=== PATIENT | female | born 1980 | race Caucasian/White ===

== ENCOUNTER 2018-01-03 06:28 | Emergency (ER) | payer OTHER ==
--- NOTE | 2018-01-03 06:52 | CPEKG ---
Heart Rate: 73 RR Interval: 822 P-R Interval: 144 QRSD Interval: 76 QT Interval: 416 QTC Interval: 459 P Bethel: 64 QRS Bethel: 57 T Wave Bethel: 55 EKG Severity - NORMAL ECG - EKG Impression: SINUS RHYTHM Electronically Signed By: Davy Diop 03-Jan-2018 09:16:53
[2018-01-03] MEDS ORDERED: ALBUTEROL INH PREPACK MDI TAKEHOME ONE (07:08)
--- NOTE | 2018-01-03 07:12 | EDPHY ---
H & P Stated Complaint: pain in ribs/chest, pain with deep breaths x2 weeks Time Seen by Provider: 01/03/18 06:52 HPI/ROS: Chief Complaint: Chest tightness, cough HPI: 37-year-old woman presenting with 1 month of intermittent cough, chest tightness with pain in her right arm. Occasionally gets some stabbing pains in the center of her chest. She is currently living in an old trailer and the roof is leaking. She is concerned that she may have pneumonia from black mold. Denies any fevers or chills. No nausea or vomiting. No weight loss or weight gain. No recent travel or periods of immobility. No leg pain or swelling. She does not smoke. Does not have a family history of coronary artery disease. Pain right now is a 2/10. There are no aggravating or alleviating factors. ROS: 10 point Review of Systems is negative except as noted in the HPI. PMH: Hypothyroidism Social History: No smoking, no alcohol, no recreational drug use Family History: non-contributory Physical Exam: Gen: Awake, Alert, No Distress HEENT: Nose: no rhinorrhea Eyes: PERRLA, EOMI Mouth: Moist mucosa Neck: Supple, no JVD Chest: nontender, mild expiratory wheeze with forced expiration, no focal rales or rhonchi Heart: S1, S2 normal, no murmur Abd: Soft, non-tender, no guarding Back: no CVA tenderness, no midline tenderness Ext: no edema, non-tender Skin: no rash Neuro: CN II-XII intact, Sensation grossly intact, Strength 5/5 in bilateral upper and lower extremities - Personal History LMP (Females 10-55): 1-7 Days Ago Current Tetanus/Diphtheria Vaccine: Yes - Medical/Surgical History Hx Asthma: No Hx Chronic Respiratory Disease: No Hx Diabetes: No Hx Cardiac Disease: No Hx Renal Disease: No Hx Cirrhosis: No Hx Alcoholism: No Hx HIV/AIDS: No Hx Splenectomy or Spleen Trauma: No Other PMH: migraines, hypothyroidism - Social History Smoking Status: Never smoked Constitutional: Initial Vital Signs Heart Rate 81 01/03/18 06:30 Respiratory Rate 18 01/03/18 06:30 Blood Pressure 111/80 01/03/18 06:30 O2 Sat (%) 97 01/03/18 06:30 O2 Delivery Mode Room Air Allergies/Adverse Reactions: amoxicillin [Amoxicillin] Allergy (Severe, Verified 06/20/11 19:47) penicillin G Allergy (Severe, Verified 06/20/11 19:47) Sulfa (Sulfonamide Antibiotics) Allergy (Verified 01/03/18 06:33) Home Medications: Medication Instructions Recorded Levothyroxine 01/03/18 Medical Decision Making - Diagnostics EKG Interpretation: ECG time 6:51 a.m., sinus rhythm with a rate of 73, normal axis, normal intervals, no acute ST or T-wave changes. Impression: Normal ECG. Imaging Results: Chest x-ray shows no acute process per my interpretation. Imaging: I viewed and interpreted images myself ED Course/Re-evaluation: 37-year-old woman presenting with intermittent chest discomfort for the last month. She is concerned about possible pneumonia. She is afebrile. She has some mild expiratory wheeze on examination. Chest x-ray is negative. Symptoms consistent with reactive airway disease and perhaps some mild allergic bronchitis. She is improved after albuterol MDI. Will discharge with follow- up with primary care physician, return for worsening. I have encouraged him to have there trailer tested for mold. - Data Points Medications Given: Discontinued Medications Albuterol Sulfate (Proventil Inh Prepack) 1 mdi SHARIFA HAMILTON ONE Stop: 01/03/18 07:09 Last Admin: 01/03/18 07:14 Dose: 1 mdi Departure - Departure Disposition: Home, Routine, Self-Care Clinical Impression: Wheezing, Reactive airway disease Condition: Good Instructions: Albuterol (By breathing), Reactive Airways Disease (ED) Additional Instructions: You may use the albuterol inhaler 2 puffs every 4 hr as needed for wheeze, shortness of breath, or chest tightness. Follow up with primary care physician in 3-4 days for further evaluation. Return to the emergency department for increasing chest pain, shortness of breath, fevers or chills, worsening cough, or any other concerns. Referrals: Danna Davey MD [Primary Care Provider] - As per Instructions
[2018-01-03 08:11] VITALS: BP 133/76
== END 2018-01-03 08:11 | disposition home or self-care (01) ==
DX: J45.909 Unspecified asthma, uncomplicated (principal)

== ENCOUNTER 2018-07-17 18:36 | Emergency (ER) | payer OTHER ==
--- NOTE | 2018-07-17 19:12 | EDPHY ---
H & P Stated Complaint: has an eating disorder/unable to eat/vomiting wants help Time Seen by Provider: 07/17/18 19:11 - Personal History LMP (Females 10-55): Now Current Tetanus Diphtheria and Acellular Pertussis (TDAP): Yes - Medical/Surgical History Hx Asthma: No Hx Chronic Respiratory Disease: No Hx Diabetes: No Hx Cardiac Disease: No Hx Renal Disease: No Hx Cirrhosis: No Hx Alcoholism: No Hx HIV/AIDS: No Hx Splenectomy or Spleen Trauma: No Other PMH: migraines, hypothyroidism - Social History Smoking Status: Never smoked Constitutional: Initial Vital Signs Temperature (C) 36.7 C 07/17/18 18:39 Heart Rate 80 07/17/18 18:39 Respiratory Rate 18 07/17/18 18:39 Blood Pressure 131/90 H 07/17/18 18:39 O2 Sat (%) 98 07/17/18 18:39 O2 Delivery Mode Room Air Allergies/Adverse Reactions: amoxicillin [Amoxicillin] Allergy (Severe, Verified 07/17/18 18:38) penicillin G Allergy (Severe, Verified 07/17/18 18:38) Sulfa (Sulfonamide Antibiotics) Allergy (Verified 07/17/18 18:38) Home Medications: Medication Instructions Recorded Levothyroxine 01/03/18 IMITREX 07/17/18 Medical Decision Making ED Course/Re-evaluation: CHIEF COMPLAINT: "I'm actively struggling with an eating disorder" HISTORY OF PRESENT ILLNESS: The patient is a 37 y/o female with a long history of anorexia nervosa who is complaining of actively struggling with inability to eat for the last month. She says she has lost 20-lbs in the last month and says , "I honestly haven't been able to eat. I try and I throw it back up." She has previously received counseling for anorexia with periods of control over her symptoms. She describes a lot of stress in her home life currently, which probably triggered resurgence of her anorexia symptoms. She says her boyfriend is an alcoholic and quit his job and she has been covering all the financial responsibilities while taking care of him and he is currently admitted at another hospital. She says she hasn't been able to sleep much in the last 2 months either. REVIEW OF SYSTEMS: A comprehensive 10 system review of systems is otherwise negative aside from elements mentioned in the history of present illness and medical decision making. PHYSICAL EXAM: HR, BP, O2 Sat, RR. Temp noted General Appearance: Alert, well hydrated, appropriate, and non-toxic appearing. Thin. Head: Atraumatic without scalp tenderness or obvious injury Eyes: Pupils equal, round, reactive to light and accommodation, EOMI, no trauma , no injection. Nose: Atraumatic, no rhinorrhea, clear. Throat: Mucus membranes moist. Neck: Supple, nontender, no lymphadenopathy. Respiratory: No retractions, no distress, no wheezes, and no accessory muscle use. Lungs are clear to auscultation bilaterally. Cardiovascular: Regular rate and rhythm, no murmurs, rubs, or gallops. Good capillary refill all extremities. Gastrointestinal: Abdomen is soft, nontender, non-distended, no masses, no rebound, no guarding, no peritoneal signs. Musculoskeletal: Normal active ROM of all extremities, atraumatic. Neurological: Alert, appropriate, and interactive. The patient has non-focal cranial nerves, motor, sensory, and cerebellar exam. Skin: No rashes, good turgor, no nodules on palpation. Past medical history: Migraines, hypothyroidism, anorexia nervosa most of her life Past surgical history: Noncontributory Family history: Noncontributory Social history: Lives in [place]. Employed at [employer]. DIFFERENTIAL DIAGNOSIS: The differential diagnosis for the patient's symptoms included but was not limited to anorexia nervosa, bulimia, other psychiatric disorders, substance abuse. MEDICAL DECISION MAKING: This is a 37 y/o female with a long history of anorexia nervosa who presents with difficulty eating for the last month resulting in a reported 20-lbs weight loss. Labs unremarkable. She does not want inpatient solution so she can keep her job. Mental health discussed outpatient resources with her and she is comfortable following up with them. Return precautions discussed. - Data Points Laboratory Results: Laboratory Results 07/17/18 20:05 07/17/18 20:05 07/17/18 07/17/18 07/17/18 20:08 20:05 20:05 WBC RBC Hgb Hct MCV MCH MCHC RDW Plt Count MPV Neut % (Auto) Lymph % (Auto) [place] % (Auto) Eos % (Auto) Baso % (Auto) Nucleat RBC Rel Count Absolute Neuts (auto) Absolute Lymphs (auto) Absolute Monos (auto) Absolute Eos (auto) Absolute Basos (auto) Absolute Nucleated RBC Immature Gran % Immature Gran # Sodium 139 mEq/L mEq/L (135-145) Potassium 3.4 mEq/L mEq/L (3.3-5.0) Chloride 102 mEq/L mEq/L (97-110) Carbon Dioxide 27 mEq/l mEq/l (22-31) Anion Gap 10 mEq/L mEq/L (6-14) BUN 9 mg/dL mg/dL (7-23) Creatinine 0.6 mg/dL mg/dL (0.6-1.0) Estimated GFR > 60 Glucose 96 mg/dL mg/dL (70-100) Calcium 10.0 mg/dL mg/dL (8.5-10.4) Total Bilirubin 0.9 mg/dL mg/dL (0.1-1.4) Conjugated Bilirubin 0.2 mg/dL mg/dL (0.0-0.5) Unconjugated Bilirubin 0.7 mg/dL mg/dL (0.0-1.1) AST 18 IU/L IU/L (14-46) ALT 18 IU/L IU/L (9-52) Alkaline Phosphatase 83 IU/L IU/L (38-126) Total Protein 7.7 g/dL g/dL (6.3-8.2) Albumin 4.5 g/dL g/dL (3.5-5.0) Lipase 102 IU/L IU/L (23-300) Beta HCG, Qual NEGATIVE Urine Opiates Screen NEGATIVE (NEGATIVE) Urine Barbiturates NEGATIVE (NEGATIVE) Ur Phencyclidine Scrn NEGATIVE (NEGATIVE) Ur Amphetamine Screen NEGATIVE (NEGATIVE) U Benzodiazepines Scrn NEGATIVE (NEGATIVE) Urine Cocaine Screen NEGATIVE (NEGATIVE) U Marijuana (THC) Screen NEGATIVE (NEGATIVE) Ethyl Alcohol < 10 mg/dL mg/dL (0-10) 07/17/18 20:05 WBC 6.98 10^3/uL 10^3/uL (3.80-9.50) RBC 5.11 10^6/uL 10^6/uL (4.18-5.33) Hgb 14.2 g/dL g/dL (12.6-16.3) Hct 41.2 % % (38.0-47.0) MCV 80.6 fL L fL (81.5-99.8) MCH 27.8 pg L pg (27.9-34.1) MCHC 34.5 g/dL g/dL (32.4-36.7) RDW 12.9 % % (11.5-15.2) Plt Count 409 10^3/uL H 10^3/uL (150-400) MPV 9.2 fL fL (8.7-11.7) Neut % (Auto) 64.9 % % (39.3-74.2) Lymph % (Auto) 27.9 % % (15.0-45.0) Montour % (Auto) 5.4 % % (4.5-13.0) Eos % (Auto) 1.4 % % (0.6-7.6) Baso % (Auto) 0.3 % % (0.3-1.7) Nucleat RBC Rel Count 0.0 % % (0.0-0.2) Absolute Neuts (auto) 4.52 10^3/uL 10^3/uL (1.70-6.50) Absolute Lymphs (auto) 1.95 10^3/uL 10^3/uL (1.00-3.00) Absolute Monos (auto) 0.38 10^3/uL 10^3/uL (0.30-0.80) Absolute Eos (auto) 0.10 10^3/uL 10^3/uL (0.03-0.40) Absolute Basos (auto) 0.02 10^3/uL 10^3/uL (0.02-0.10) Absolute Nucleated RBC 0.00 10^3/uL 10^3/uL (0-0.01) Immature Gran % 0.1 % % (0.0-1.1) Immature Gran # 0.01 10^3/uL 10^3/uL (0.00-0.10) Sodium Potassium Chloride Carbon Dioxide Anion Gap BUN Creatinine Estimated GFR Glucose Calcium Total Bilirubin Conjugated Bilirubin Unconjugated Bilirubin AST ALT Alkaline Phosphatase Total Protein Albumin Lipase Beta HCG, Qual Urine Opiates Screen Urine Barbiturates Ur Phencyclidine Scrn Ur Amphetamine Screen U Benzodiazepines Scrn Urine Cocaine Screen U Marijuana (THC) Screen Ethyl Alcohol Departure - Departure Disposition: Home, Routine, Self-Care Clinical Impression: Anorexia Condition: Good Instructions: Anorexia Nervosa (ED) Additional Instructions: Follow up with the resources discussed. Return to the ED for any worsening of condition. Referrals: [facility] [Other] - As per Instructions [facility] [Clinic] - As per Instructions Report Scribed for: Jorge Rojas Report Scribed by: Radha Vargas Date of Report: 07/17/18 Time of Report: 21:19
[2018-07-17 20:15] LABS: PLATELET COUNT 409 10^3/uL (150-400)
[2018-07-17 21:37] VITALS: BP 127/84
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
== END 2018-07-17 21:37 | disposition home or self-care (01) ==
DX: R63.0 Anorexia (principal); E03.9 Hypothyroidism, unspecified; G43.909 Migraine, unspecified, not intractable, without status migrainosus
CPT/HCPCS: 80305; G0480